=== PATIENT | female | born 1970 | race Two or more races ===

== ENCOUNTER 2022-11-16 08:52 | Emergency (ER) | payer MEDICAID ==
[~2022-11-16] VITALS: Ht 154.9 cm; Wt 68.2 kg
[2022-11-16 08:59] VITALS: TEMP 98.9
[2022-11-16 09:28] VITALS: BP 147/76; PULSE 75; RESP 20; O2SAT 100
[2022-11-16] MEDS ORDERED: LANTUS SQ (09:49)
== END 2022-11-16 10:10 | disposition home or self-care (01) ==
LOC: ER 08:53
DX: E10.65 Type 1 diabetes mellitus with hyperglycemia (principal); Z79.84 Long term (current) use of oral hypoglycemic drugs
CPT/HCPCS: 82948; 99283

== ENCOUNTER 2023-02-02 15:18 | Emergency (ER) | payer MEDICAID ==
[~2023-02-02] VITALS: Ht 154.9 cm; Wt 68.6 kg
[2023-02-02 15:28] VITALS: BP 133/67; PULSE 84; TEMP 97.8; O2SAT 98
--- NOTE | 2023-02-02 15:30 | NUR ---
FROM 1530 TO 1600 PT TURNED HER PUMP OFF.
[2023-02-02 16:00] VITALS: RESP 16
--- NOTE | 2023-02-02 16:00 | NUR ---
PT ATE 06/23 OF [employer]
--- NOTE | 2023-02-02 16:00 | NUR ---
pt states,"Im a little confused, cant remember if I programmed my pump correctly
--- NOTE | 2023-02-02 16:30 | NUR ---
BG 396 ON PT'S MACHINE. FROM 4P TO 1530 PT RECEIVED 4 U REG INSULIN FROM HER PUMP.
--- NOTE | 2023-02-02 19:00 | NUR ---
pt states,I am not confused, I feel very clear minded now."
== END 2023-02-02 19:04 | disposition home or self-care (01) ==
LOC: ER 15:19
DX: E11.649 Type 2 diabetes mellitus with hypoglycemia without coma (principal); E78.00 Pure hypercholesterolemia, unspecified; E11.9 Type 2 diabetes mellitus without complications
CPT/HCPCS: 82948; 99282